=== PATIENT | male | born 1945 | race African-American/Black ===

== ENCOUNTER 2017-05-31 16:59 | Emergency (ER) | payer MEDICARE, OTHER ==
[~2017-05-31] VITALS: Ht 177.8 cm; Wt 62.3 kg
[~2017-05-31 16:59] MED LIST: TAMS-1 PO
[2017-05-31] MEDS ORDERED: BICA50TA3 PO (18:09)
[2017-05-31] MEDS ORDERED: ALFU10TA30 PO (18:09)
[2017-05-31] MEDS ORDERED: CYCL10 PO (18:09)
[2017-05-31] MEDS ORDERED: CYAN500 PO (18:09)
[2017-05-31] MEDS ORDERED: ZINC30TA2 PO (18:09)
[2017-05-31] MEDS ORDERED: ASCO500 PO (18:09)
[2017-05-31] MEDS ORDERED: LIDOCAINE HCL 2% 5 ML JELLY TP ONE (19:30)
[2017-05-31 20:40] VITALS: BP 111/64
== END 2017-05-31 21:01 | disposition home or self-care (01) ==
LOC: EMS 17:01
DX: T83.021A Displacement of indwelling urethral catheter, initial encounter (principal); Z85.46 Personal history of malignant neoplasm of prostate
CPT/HCPCS: 51702; 99283

== ENCOUNTER 2018-03-24 23:26 | Emergency (ER) | payer MEDICARE, OTHER ==
[~2018-03-24] VITALS: Ht 177.8 cm; Wt 59.1 kg
[~2018-03-24 23:26] MED LIST changes: +ALFU10TA30 PO; +ASCO500 PO; +BICA50TA8 PO; +CYAN500 PO; +CYCL10 PO; -TAMS-1 PO; +ZINC30TA2 PO
[2018-03-24] MEDS ORDERED: TAMS0.4C32 PO (23:34)
[2018-03-25 01:18] LABS: APPEARANCE,URINE CLOUDY (CLEAR); BILIRUBIN,URINE NEGATIVE (NEGATIVE); GLUCOSE, URINE (UA) NEGATIVE (NEGATIVE); KETONES,URINE NEGATIVE (NEGATIVE); LEUKOCYTE ESTERASE ,URINE LARGE (NEGATIVE); NITRATE,URINE POSITIVE (NEGATIVE); OCCULT BLOOD,URINE MODERATE (NEGATIVE); PROTEIN,URINE NEGATIVE (NEGATIVE); UROBILINOGEN,URINE 0.2 mg/dL (<=1.0)
[2018-03-25 01:24] LABS: BACTERIA,URINE Moderate /HPF (None Seen); SQUAMOUS EPITHELIAL CELL,UR None Seen /LPF (None Seen); WBC,URINE 51-100 /HPF (0-5)
[2018-03-25 01:39] VITALS: BP 127/79
== END 2018-03-25 02:28 | disposition home or self-care (01) ==
LOC: EMS 23:26
DX: T83.511A Infection and inflammatory reaction due to indwelling urethral catheter, initial encounter (principal); Z85.46 Personal history of malignant neoplasm of prostate
CPT/HCPCS: 51702; 87086; 99284